=== PATIENT | female | born 1990 | race Caucasian/White ===

== ENCOUNTER 2017-03-21 20:54 | Emergency (ER) | payer OTHER ==
[2017-03-21] MEDS ORDERED: NS 1,000 ML IV ONE (21:13)
[2017-03-21] MEDS ORDERED: DICYCLOMINE 10 MG CAP PO ONE (21:18)
[2017-03-21] MEDS ORDERED: ONDANSETRON 4 MG/2 ML VIAL IVP ONE (21:18)
--- NOTE | 2017-03-21 21:26 | EDPHY ---
H & P Stated Complaint: pt c/o diarreha x3 days, abd cramping HPI/ROS: CHIEF COMPLAINT: Diarrhea, cramping HISTORY OF PRESENT ILLNESS: Patient complains of 3 days history of diarrhea and cramping. It was sudden onset. Constant duration and steadily worsening. Multiple bouts of diarrhea per day. Particularly worse after ingestion by mouth regardless of liquid or solid. Occasional nausea but no vomiting. No trauma or injury. No bright red stool. No fever or chills. No recent travel. She did have a recent viral illness last week and does have a friend who has viral URI symptoms. No recent antibiotics. She has been taking loperamide [id number] today without improvement. No other associated complaints or modifying factors. Last menstrual period was 3 weeks ago REVIEW OF SYSTEMS: Ten systems reviewed and are negative unless otherwise noted in the HPI PAST MEDICAL HISTORY: Denies any medical history PAST SURGICAL HISTORY: Denies any surgical history SOCIAL HISTORY: Patient is originally from [place]. She is visiting here until March 27. FAMILY HISTORY: Noncontributory EXAMINATION General Appearance: Alert, no distress Head: normocephalic, atraumatic Eyes: Pupils equal and round, no conjunctival pallor or injection ENT, Mouth: Mucous membranes moist Neck: Normal inspection, supple, non-tender Respiratory: Lungs are clear to auscultation. No wheezing rhonchi or crackles Cardiovascular: Regular rate and rhythm. No murmur. Pulses intact distally Gastrointestinal: Abdomen is soft and nontender. No distention. Bowel sounds are equal in all 4 quadrants. No distention. No guarding. No rigidity. Benign abdominal examination Back: non-tender, no bony abnormalities Neurological: A&O, nonfocal, normal gait Skin: Warm and dry, no rash Extremities: Nontender, no pedal edema Psychiatric: Mood and affect normal DIFFERENTIAL DIAGNOSES: Including but not limited to viral enteritis, enteritis, diarrhea, dysentery, gastroenteritis, dehydration, MDM: 9:20 p.m. Diarrhea abdominal cramping x3 days. Abdominal exam is benign. Laboratory studies, IV fluid and stool pathogen panel have been ordered. She is in no acute distress. Vital signs stable. 10:30 p.m. I have re-evaluated the patient. She is beginning to feel much better. She has received IV fluid, IV Zofran and Bentyl. Her cramping is improved. Abdominal exam remains benign. Vital signs are stable. Laboratory studies pending. 10:50 p.m. Laboratory studies are within normal limits. No leukocytosis. I have re- evaluated the patient she continues to improve. No nausea. Benign abdominal examination. The GI pathogen panel will not be evaluated until tomorrow morning as there is reportedly no microscopy available this evening. Given her lack of fever, normal white count and improving symptoms I will discharge her home with symptomatic medications. I will follow up on the lab tomorrow morning and contact her with the results. I do not feel she warrants empiric antibiotic coverage at this time as she does not have any suggestion of bacterial involvement. She is comfortable with this plan and discharged home stable condition. She knows that I will contact her tomorrow morning regarding the test results. 11:10 a.m. on March 22, 2017 Patient's micro study, GI pathogen panel, does return with a positive result for Cryptosporidium. Due to the parasitic nature of this I will prescribe Nitazoxanide 500 mg twice daily for 3 days. I have attempted to call the patient twice and I will continue to do so until reach her. 11:30 a.m. I was able to reach the patient by her total. I discussed the positive test result. I discussed the need for prescription. I have printed this and left at the from does for her. She says that she will come picker and sorter load and unload the prescription shortly. Source: Patient Exam Limitations: No limitations - Personal History LMP (Females 10-55): 22-28 Days Ago Tetanus Vaccine Date: 04/25 - Medical/Surgical History Hx Asthma: No Hx Chronic Respiratory Disease: No Hx Diabetes: No Hx Cardiac Disease: No Hx Renal Disease: No Hx Cirrhosis: No Hx Alcoholism: No Hx HIV/AIDS: No Hx Splenectomy or Spleen Trauma: No Other PMH: denies - Social History Smoking Status: Former smoker Constitutional: Initial Vital Signs Temperature (C) 99.1 F 03/21/17 20:58 Heart Rate 84 03/21/17 20:58 Respiratory Rate 16 03/21/17 20:58 Blood Pressure 115/95 H 03/21/17 20:58 O2 Sat (%) 97 03/21/17 20:58 O2 Delivery Mode Room Air Allergies/Adverse Reactions: No Known Allergies Allergy (Unverified 03/21/17 20:56) Home Medications: Medication Instructions Recorded Dicyclomine [Bentyl 20 MG (*)] 20 mg PO QID PRN #13 tab 03/21/17 Loperamide HCl 03/21/17 Ondansetron Odt [Zofran Odt 4 mg 4 mg PO Q6 PRN #12 tab 03/21/17 (*)] Nitazoxanide [Alinia] 500 mg PO Q12 #6 tablet 03/22/17 Medical Decision Making - Data Points Laboratory Results: Laboratory Results 03/21/17 21:31 03/21/17 21:31 Microbiology Results: MICROBIOLOGY 03/21/17 21:30 Stool Gastrointestinal Tract Panel (PCR) - Final Cryptosporidium Species Medications Given: Discontinued Medications Dicyclomine HCl (Bentyl) 20 mg PO EDNOW ONE Stop: 03/21/17 21:19 Last Admin: 03/21/17 21:58 Dose: 20 mg Sodium Chloride (Ns) 1,000 mls @ 0 mls/hr IV EDNOW ONE; Wide Open PRN Reason: Protocol Stop: 03/21/17 21:14 Last Admin: 03/21/17 21:59 Dose: 1,000 mls Ondansetron HCl (Zofran) 4 mg IVP EDNOW ONE Stop: 03/21/17 21:19 Last Admin: 03/21/17 21:58 Dose: 4 mg Ondansetron HCl (Zofran Odt 4 Mg Prepack#2) 1 btl TAKEHOME EDNOW ONE Stop: 03/21/17 22:54 Last Admin: 03/21/17 23:02 Dose: 1 btl Departure - Departure Disposition: Home, Routine, Self-Care Clinical Impression: Cryptosporidiosis Diarrhea Qualifiers: Diarrhea type: infectious Qualified Code(s): A09 - Infectious gastroenteritis and colitis, unspecified Condition: Good Instructions: Loperamide (By mouth), Ondansetron (By mouth), Dehydration (ED), Acute Diarrhea (ED) Additional Instructions: 1. Increase fluid intake as discussed 2. Zofran p.o. as discussed as needed 3. Return to ER for any worsening pain, bloody stools, fever, emesis or cramping Referrals: NONE *PRIMARY CARE P,. [Primary Care Provider] - As per Instructions Irene Shaw MD [[facility] [place]] - As per Instructions Prescriptions: Dicyclomine [Bentyl 20 MG (*)] 20 mg PO QID PRN #13 tab PRN Reason: spasm Nitazoxanide [Alinia] 500 mg PO Q12 #6 tablet Ondansetron Odt [Zofran Odt 4 mg (*)] 4 mg PO Q6 PRN #12 tab PRN Reason: Nausea/Vomiting, Use 1st
[2017-03-21 21:46] LABS: % IMMATURE GRANULYOCYTES 0.3 % (0.0-1.1); ABSOLUTE IMMATURE GRANULOCYTES 0.02 10^3/uL (0.00-0.10); ADD DIFF? NO; ADD MORPH? NO; ADD SCAN? YES; FRAGMENT RBC FLAG 0 (0-99); HEMATOCRIT 40.4 % (38.0-47.0); HEMOGLOBIN 13.2 g/dL (12.6-16.3); LEFT SHIFT FLG 0 (0-99); LIPEMIA HEMOLYSIS FLAG 80 (0-99); MEAN CELL HEMOGLOBIN 30.1 pg (27.9-34.1); MEAN CELL HEMOGLOBIN CONCENTR. 32.7 g/dL (32.4-36.7); MEAN CELL VOLUME 92.2 fL (81.5-99.8); MEAN PLATELET VOLUME 9.7 fL (8.7-11.7); PLATELET CLUMPS FLAG 30 (0-99); PLATELET COUNT 354 10^3/uL (150-400); RED BLOOD CELL COUNT 4.38 10^6/uL (4.18-5.33)
[2017-03-21 21:50] LABS: ATYPICAL LYMPHOCYTE FLAG 150 (0-99)
[2017-03-21 21:55] LABS: ALANINE AMINOTRANSFERASE 28 IU/L (9-52); ALKALINE PHOSPHATASE 50 IU/L (38-126); ANION GAP 12 mEq/L (8-16); ASPARTATE AMINOTRANSFERASE 23 IU/L (14-46); BILIRUBIN,TOTAL 0.5 mg/dL (0.1-1.4); BILIRUBIN-CONJUGATED 0.3 mg/dL (0.0-0.5); BILIRUBIN-UNCONJUGATED 0.2 mg/dL (0.0-1.1); CARBON DIOXIDE 20 mEq/l (22-31); CHLORIDE 106 mEq/L (97-110); CREATININE 0.7 mg/dL (0.6-1.0); GLOMERULAR FILTRATION RATE > 60; GLUCOSE 109 mg/dL (70-100); POTASSIUM 3.8 mEq/L (3.5-5.2); SODIUM 138 mEq/L (134-144); TOTAL PROTEIN 7.7 g/dL (6.3-8.2)
[2017-03-21 22:18] LABS: SCAN NEGATIVE
[2017-03-21] MEDS ORDERED: ONDANSETRON 4MG PREPACK#2 BTL TAKEHOME ONE (22:53)
[2017-03-21 23:10] VITALS: BP 123/69; PULSE 64; RESP 18; TEMP 98.8; O2SAT 96
== END 2017-03-21 23:10 | disposition home or self-care (01) ==
DX: A09 Infectious gastroenteritis and colitis, unspecified (principal); A07.2 Cryptosporidiosis; E86.9 Volume depletion, unspecified; Z87.891 Personal history of nicotine dependence
CPT/HCPCS: 96374; J2405

== ENCOUNTER 2017-03-22 03:05 | Emergency (ER) | payer OTHER ==
[2017-03-22 03:16] VITALS: RESP 16; TEMP 98.4; O2SAT 97
--- NOTE | 2017-03-22 03:53 | EDPHY ---
H & P Stated Complaint: pt seen earlier for diarreha, now has increased blood in stool HPI/ROS: HPI CHIEF COMPLAINT: Diarrhea, blood in his stool, seen earlier HISTORY OF PRESENT ILLNESS: This patient very pleasant 26-year-old female she presents to the emergency room with bright red blood per rectum minimal quantity. She states that it is light pink. Patient reports to me that she was seen here earlier she had normal blood work and a stool study sent to the lab. A stool study has not been run yet. Will be run today. She denies any fever, vomiting or worsening abdominal pain. She states the fact her cramping is improved. She came back to the emergency room because she saw some pink blood in her loose stool. She was told she saw that the come back to the emergency room. Past Medical History: No significant medical history Past Surgical History: No significant surgical history Social History: Denies daily use drugs alcohol tobacco products. Family History: Noncontributory ROS REVIEW OF SYSTEMS: A comprehensive 10 point review of systems is otherwise negative aside from elements mentioned in the history of present illness. Exam Constitutional appears well nontoxic triage nursing summary reviewed, vital signs reviewed, awake/alert. Eyes normal conjunctivae and sclera, EOMI, PERRLA. HENT normal inspection, atraumatic, moist mucus membranes, no epistaxis, neck supple/ no meningismus, no raccoon eyes. Respiratory clear to auscultation bilaterally, normal breath sounds, no respiratory distress, no wheezing. Cardiovascular rate normal, regular rhythm, no murmur, no edema, distal pulses normal. Gastrointestinal soft, non-tender, no rebound, no guarding, normal bowel sounds, no distension, no pulsatile mass. Genitourinary no CVA tenderness. Musculoskeletal no midline vertebral tenderness, full range of motion, no calf swelling, no tenderness of extremities, no meningismus, good pulses, neurovascularly intact. Skin pink, warm, & dry, no rash, skin atraumatic. Neurologic awake, alert and oriented x 3, AAOx3, moves all 4 extremities equally, motor intact, sensory intact, CN II-XII intact, normal cerebellar, normal vision, normal speech. Psychiatric normal mood/affect. Heme/Lymph/Immune no lymphadenopathy. Differential Diagnosis: Includes but is not limited to in a particular order, GI illness, viral diarrhea, bacterial diarrheal illness, internal hemorrhoidal bleed, proctitis Medical Decision Making: Plan for this patient I did review her previous recent ER visit. Her blood work is reassuring. She has normal vital signs here she is not having significant rectal bleeding. Her abdomen is soft nontender. Plan will be for rectal exam if this is unremarkable I will allow her to go home to follow up with her stool studies. Again return precautions given severe abdominal pain, fever, vomiting severe bleeding she should return. Follow up stool studies in 24 hours. Re-evaluation: 0426AM: Rectal exam performed. Kayla ROTHMAN emulsion coater. No external lesions. Rectal exam unremarkable green brown stool no blood. No palpable hemorrhoids or mass. No gross blood. I will allow her to go home. She understands return emergency room if she has worsening abdominal pain fever vomiting or cramping or bloody stools. Recommend calling about her stool studies in 24 hours. Or today afternoon. Source: Patient - Personal History LMP (Females 10-55): 15-21 Days Ago Current Tetanus Diphtheria and Acellular Pertussis (TDAP): Yes Tetanus Vaccine Date: 04/25 - Medical/Surgical History Hx Asthma: No Hx Chronic Respiratory Disease: No Hx Diabetes: No Hx Cardiac Disease: No Hx Renal Disease: No Hx Cirrhosis: No Hx Alcoholism: No Hx HIV/AIDS: No Hx Splenectomy or Spleen Trauma: No Other PMH: denies - Social History Smoking Status: Former smoker Constitutional: Initial Vital Signs Temperature (C) 36.9 C 03/22/17 03:07 Heart Rate 79 03/22/17 03:07 Respiratory Rate 16 03/22/17 03:07 Blood Pressure 108/60 03/22/17 03:07 O2 Sat (%) 97 03/22/17 03:07 O2 Delivery Mode Room Air Allergies/Adverse Reactions: No Known Allergies Allergy (Unverified 03/21/17 20:56) Home Medications: Medication Instructions Recorded Dicyclomine [Bentyl 20 MG (*)] 20 mg PO QID PRN #13 tab 03/21/17 Loperamide HCl 03/21/17 Ondansetron Odt [Zofran Odt 4 mg 4 mg PO Q6 PRN #12 tab 03/21/17 (*)] Departure - Departure Disposition: Home, Routine, Self-Care Clinical Impression: Diarrhea Qualifiers: Diarrhea type: unspecified type Qualified Code(s): R19.7 - Diarrhea, unspecified Condition: Good Instructions: Acute Diarrhea (ED) Additional Instructions: 1. Return emergency room if develops worsening symptoms includes worsening abdominal pain, fever, vomiting. 2. Please follow up with your stool studies in 24 hours. 3. Return if worse. 4. [place] diet. Referrals: NONE *PRIMARY CARE P,. [Primary Care Provider] - As per Instructions
[2017-03-22] MEDS ORDERED: ACETAMINOPHEN 500 MG TAB PO ONE (04:27)
[2017-03-22 04:39] VITALS: BP 112/78; PULSE 87
[2017-03-24] MEDS ORDERED: IOPAMIDOL (ISOVUE-300) 100 ML BTL ONE (04:56)
== END 2017-03-22 04:39 | disposition home or self-care (01) ==
DX: R19.7 Diarrhea, unspecified (principal); Z87.891 Personal history of nicotine dependence
CPT/HCPCS: Q9967

== ENCOUNTER 2017-03-24 04:11 | Observation (INO) | payer OTHER ==
[2017-03-24] MEDS ORDERED: ONDANSETRON 4 MG/2 ML VIAL IVP ONE (04:45)
[2017-03-24] MEDS ORDERED: NS 1,000 ML IV ONE (04:45)
[2017-03-24] MEDS ORDERED: ONDANSETRON 4 MG/2 ML VIAL ONE (04:46)
--- NOTE | 2017-03-24 05:16 | EDPHY ---
H & P Time Seen by Provider: 03/24/17 05:07 HPI/ROS: HPI CHIEF COMPLAINT: Abdominal pain, abdominal cramps, bright red blood per rectum HISTORY OF PRESENT ILLNESS: this patient is a female she presents emergency room with abdominal pain abdominal cramping and bright red blood per rectum. She was previously seen here in the emergency room 2 for times. She states approximately last week she developed some abdominal pain and cramping. Then developed some bloody stool 3 days ago. She was seen in emergency room had stool studies sent. She tells me since being discharged she has had ongoing abdominal pain getting worse with abdominal cramping and bright red blood per rectum. No fever no vomiting. She states that she did follow up her stool study and she was called into medication [facility], however she continues to have abdominal pain, abdominal bloating and rectal bleeding. Past Medical History: No significant medical history Past Surgical History: No significant surgical history Social History: Denies daily use drugs alcohol tobacco products. Family History: Noncontributory ROS REVIEW OF SYSTEMS: A comprehensive 10 point review of systems is otherwise negative aside from elements mentioned in the history of present illness. Exam Constitutional triage nursing summary reviewed, vital signs reviewed, awake/ alert. Eyes normal conjunctivae and sclera, EOMI, PERRLA. HENT normal inspection, atraumatic, moist mucus membranes, no epistaxis, neck supple/ no meningismus, no raccoon eyes. Respiratory clear to auscultation bilaterally, normal breath sounds, no respiratory distress, no wheezing. Cardiovascular rate normal, regular rhythm, no murmur, no edema, distal pulses normal. Gastrointestinal soft, mild tenderness diffusely, no rebound, no guarding, normal bowel sounds, no distension, no pulsatile mass. Genitourinary no CVA tenderness. Musculoskeletal no midline vertebral tenderness, full range of motion, no calf swelling, no tenderness of extremities, no meningismus, good pulses, neurovascularly intact. Skin pink, warm, & dry, no rash, skin atraumatic. Neurologic awake, alert and oriented x 3, AAOx3, moves all 4 extremities equally, motor intact, sensory intact, CN II-XII intact, normal cerebellar, normal vision, normal speech. Psychiatric normal mood/affect. Heme/Lymph/Immune no lymphadenopathy. Differential diagnosis includes but is not limited to and in no particular order : Bowel obstruction, appendicitis, gallbladder disease, diverticulitis, colitis , enteritis, perforated viscus, gastritis, GERD, esophagitis, urinary tract infection, pyelonephritis, kidney stones Medical Decision Making: Plan for this patient IV establishment, IV fluid bolus , Zofran for nausea morphine for pain control, repeat blood work, abdominal labs , CT abdomen pelvis with IV contrast check lactic acid. Review stool studies from previous visit. Re-evaluation: 0442AM: Patient reports to me that she was diagnosed with Cryptosporidium. 0532AM: CT scan of the abdomen pelvis with IV contrast The results of the study are shows diffuse thickening of the colonic wall consistent with acute colitis. The study was read by Dr. Briscoe. I viewed the images myself on the PACS system. 0500AM: Given this patient's ongoing abdominal pain and bright red blood per rectum she will be admitted to the hospital for colitis. Her CT scan does show diffuse colonic wall thickening. This is her 3rd ER visit . Ongoing abdominal pain abdominal cramping bright red blood per rectum. Positive for Cryptosporidium. Patient need to be admitted to the hospital for symptomatic management bowel rest IV fluids rehydration pain control Cryptosporidium treatment. Source: Patient - Personal History Tetanus Vaccine Date: 04/25 - Medical/Surgical History Hx Asthma: No Hx Chronic Respiratory Disease: No Hx Diabetes: No Hx Cardiac Disease: No Hx Renal Disease: No Hx Cirrhosis: No Hx Alcoholism: No Hx HIV/AIDS: No Hx Splenectomy or Spleen Trauma: No Other PMH: denies - Social History Smoking Status: Former smoker Constitutional: Initial Vital Signs Temperature (C) 36.9 C 03/24/17 04:30 Heart Rate 79 03/24/17 04:30 Respiratory Rate 18 03/24/17 04:30 Blood Pressure 110/56 L 03/24/17 04:30 O2 Sat (%) 98 03/24/17 04:30 O2 Delivery Mode Room Air Allergies/Adverse Reactions: No Known Allergies Allergy (Unverified 03/24/17 06:54) Home Medications: Medication Instructions Recorded Dicyclomine [Bentyl 20 MG (*)] 20 mg PO QID PRN #13 tab 03/21/17 Loperamide HCl [Imodium 2 mg (*)] 2 mg PO PRN PRN 03/21/17 Nitazoxanide [Alinia] 500 mg PO Q12 #6 tablet 03/22/17 Medical Decision Making - Data Points Laboratory Results: Laboratory Results 03/24/17 05:25 03/24/17 05:25 Medications Given: Dicyclomine HCl (Bentyl) 20 mg PO QID PRN PRN Reason: spasm Stop: 09/20/17 09:07 Last Admin: 03/24/17 09:57 Dose: 20 mg Sodium Chloride (Ns) 1,000 mls @ 125 mls/hr IV CONT DARRON Stop: 09/20/17 06:59 Last Admin: 03/24/17 08:56 Dose: 1,000 mls Discontinued Medications Sodium Chloride (Ns) 1,000 mls @ 0 mls/hr IV ONCE ONE PRN Reason: Wide Open Stop: 03/24/17 04:46 Last Admin: 03/24/17 04:45 Dose: 1,000 mls Morphine Sulfate (Morphine) 4 mg IVP EDNOW ONE Stop: 03/24/17 04:46 Last Admin: 03/24/17 04:45 Dose: 2 mg Nitazoxanide (Alinia) 500 mg PO Q12 DARRON PRN Reason: Protocol Stop: 03/24/17 21:01 Last Admin: 03/24/17 10:42 Dose: 500 mg Ondansetron HCl (Zofran) 4 mg IVP EDNOW ONE Stop: 03/24/17 04:46 Last Admin: 03/24/17 04:45 Dose: 4 mg Departure - Departure Disposition: [facility] Acute Clinical Impression: Bloody stool, Colitis Abdominal pain Qualifiers: Abdominal location: generalized Qualified Code(s): R10.84 - Generalized abdominal pain Condition: Fair
[2017-03-24 05:29] LABS: ALANINE AMINOTRANSFERASE 35 IU/L (9-52); ALBUMIN 3.6 g/dL (3.5-5.0); ALKALINE PHOSPHATASE 66 IU/L (38-126); ANION GAP 9 mEq/L (8-16); ASPARTATE AMINOTRANSFERASE 25 IU/L (14-46); BILIRUBIN,TOTAL 0.5 mg/dL (0.1-1.4); CALCIUM 9.1 mg/dL (8.5-10.4); CARBON DIOXIDE 21 mEq/l (22-31); CHLORIDE 104 mEq/L (97-110); CREATININE 0.8 mg/dL (0.6-1.0); GLOMERULAR FILTRATION RATE > 60; GLUCOSE 95 mg/dL (70-100); POTASSIUM 3.8 mEq/L (3.5-5.2); SODIUM 134 mEq/L (134-144); TOTAL PROTEIN 7.4 g/dL (6.3-8.2)
[2017-03-24 06:38] LABS: % IMMATURE GRANULYOCYTES 0.3 % (0.0-1.1); ABSOLUTE IMMATURE GRANULOCYTES 0.03 10^3/uL (0.00-0.10); ADD DIFF? NO; ADD MORPH? NO; ADD SCAN? NO; ATYPICAL LYMPHOCYTE FLAG 70 (0-99); FRAGMENT RBC FLAG 0 (0-99); HEMATOCRIT 41.6 % (38.0-47.0); HEMOGLOBIN 13.6 g/dL (12.6-16.3); LEFT SHIFT FLG 20 (0-99); LIPEMIA HEMOLYSIS FLAG 80 (0-99); MEAN CELL HEMOGLOBIN 29.9 pg (27.9-34.1); MEAN CELL HEMOGLOBIN CONCENTR. 32.7 g/dL (32.4-36.7); MEAN CELL VOLUME 91.4 fL (81.5-99.8); MEAN PLATELET VOLUME 9.5 fL (8.7-11.7); PLATELET CLUMPS FLAG 0 (0-99); PLATELET COUNT 394 10^3/uL (150-400); RED BLOOD CELL COUNT 4.55 10^6/uL (4.18-5.33)
[2017-03-24] MEDS ORDERED: ACETAMINOPHEN 325 MG TAB PO PRN (06:52)
[2017-03-24] MEDS ORDERED: ONDANSETRON DISINTEGRATING 4 MG TAB PO PRN (06:52)
[2017-03-24] MEDS ORDERED: ONDANSETRON 4 MG/2 ML VIAL IVP PRN (06:52)
[2017-03-24] MEDS ORDERED: HYDROmorphONE/DILAUDID 1 MG/ML SYR IVP PRN ×2 (07:00→07:06)
[2017-03-24] MEDS ORDERED: LOPERAMIDE HCL 2 MG CAP PO PRN (07:00)
[2017-03-24] MEDS ORDERED: NS 1,000 ML IV SCH (07:00)
[2017-03-24 07:07] LABS: COLOR YELLOW; LEUKOCYTE ESTERASE,URINE 2+ (NEGATIVE); NITRITE,URINE NEGATIVE (NEGATIVE)
--- NOTE | 2017-03-24 07:29 | GHP ---
[f rep st] HISTORY AND PHYSICAL DATE OF ADMISSION: 03/24/2017 CHIEF COMPLAINT: Abdominal pain, hematochezia. HISTORY OF PRESENT ILLNESS: A pleasant 26-year-old Spanish female here visiting presents to the emergency room with progressive abdominal cramping and bright red blood per rectum. She was seen here 2 times this week in the emergency room for similar symptoms. Symptoms began a week ago with crampy abdominal pain and diffuse diarrhea. She was having up to 20 bowel movements a day. She began having bloody stools 3 days ago. She has had some nausea. Two days ago, she had some dizziness. She was able to tolerate some foods like rice and broth for a short time; however, she returns today because of increased blood per rectum. Stool study since last visit was positive for Cryptosporidium, and she was started on Alinia, Bentyl, and loperamide with minimal improvement of symptoms. She did hike last at [place]. She denies drinking out of any streams or fresh water. She did drink from a public water fountain at the end of the trail. REVIEW OF SYSTEMS: I completed a 10-point review of systems. Negative except noted in HPI. PAST MEDICAL HISTORY: None. PAST SURGICAL HISTORY: None. FAMILY HISTORY: Dad with diabetes. ALLERGIES: None. MEDICATIONS: Bentyl, Alinia, and loperamide. SOCIAL HISTORY: She is from [facility]. Previously an supervisor laundry here. She is back visiting that family in [place] and came here to [place] 2 days ago to visit. Denies alcohol, tobacco, or illicits. PHYSICAL EXAM: VITAL SIGNS: Temperature 36.9, blood pressure is 110/70, heart rate in the 60s, respiration 14, 95% on room air. GENERAL: Well appearing, lying in bed, no acute distress. HEENT: Dry mucous membranes. CV: Regular rate and rhythm. No murmurs, gallops, rubs. LUNGS: Clear to auscultation bilaterally. ABDOMEN: Left lower quadrant and epigastric tenderness. No rebound or guarding. Positive bowel sounds. : No suprapubic tenderness. MUSCULOSKELETAL: 5/5 upper and lower extremity strength. No joint effusions or tenderness. NEURO: 2-12 intact. PSYCH: Alert and oriented x3. LABS: WBC 11, hemoglobin 13, hematocrit 41, platelets 394. Sodium 134, potassium 3.8, chloride 104, carbon dioxide 21, creatinine 0.8, glucose 95, calcium 9.1, total bilirubin 0.5, AST 25, ALT 35, alk phos 66, total protein 7.4 , albumin 3.4. CT abdomen and pelvis: Diffuse thickening of the colon, possible colitis. Small bowel fluid filled and mildly dilated. No peritoneal fluid. ASSESSMENT AND PLAN: 1. Cryptosporidium infection: returns with persistent hematochezia and abdominal pain. Continue her treatment as prescribed. P.r.n. loperamide and discuss case with GI. Supportive care with IV fluids and IV opioids. 2. Acute abdominal pain: Secondary to acute Cryptosporidium infection. P.r.n. opioids. Advance diet as tolerated. 3. Leukocytosis: Mild, secondary to stress inflammation with acute colitis. She is afebrile. No evidence of abscess on CT. Denies other infectious symptoms. 4. Social issues: she wants to go home to [place] to be with her family and possibly seek medical care there. We will have Case Management evaluate patient for assistance. 5. Deep venous thrombosis prophylaxis: Low risk. 6. Diet: Regular. 7. Disposition: The patient warrants observation admission given acute abdominal pain warranting supportive care with IV opioids and IV fluids. /[id number]/MODL MTDD
[2017-03-24] MEDS ORDERED: DICYCLOMINE 20 MG TAB PO PRN (09:08)
[2017-03-24] MEDS: NITAZOXANIDE 500 MG TAB PO SCH ×2 (10:42→22:59)
--- NOTE | 2017-03-24 14:45 | HOSPPROG ---
Hospitalist Progress Note Assessment/Plan: 26 yo F with no significant PMH presenting with abd pain, diarrhea and BRBPR found to have cryptosporidium infection # cryptosporidium infection: has had sxs for several days including ongoing diarrhea and BRBPR--seen in ER and treated with bentyl, immodium and alinta and has had some improvement in her sxs. She is eating without issues currently and sxs have dramatically improved, though she did have increased issues overnight and is concerned that tonight could get bad again. Will continue supportive care. # brpbr: in setting of above and without decrease in h/h, monitoring # leukocytosis: mild and in setting of above # observation status Subjective: has had decrease in BMs, tolerating food Objective: Vital Signs Temp Pulse Resp BP Pulse Ox 36.6 C 64 16 105/51 L 97 03/24/17 08:51 03/24/17 08:51 03/24/17 08:51 03/24/17 08:51 03/24/17 08:51 03/23/17 03/24/17 03/25/17 05:59 05:59 05:59 Intake Total 1000 Balance 1000 ICD10 Worksheet Patient Problems: Problems Problem Status Onset Diarrhea Acute Abdominal pain Acute Bloody stool Acute Colitis Acute
[2017-03-25 04:46] LABS: HEMATOCRIT 33.8 % (38.0-47.0); HEMOGLOBIN 10.9 g/dL (12.6-16.3); MEAN CELL HEMOGLOBIN 29.7 pg (27.9-34.1); MEAN CELL HEMOGLOBIN CONCENTR. 32.2 g/dL (32.4-36.7); MEAN CELL VOLUME 92.1 fL (81.5-99.8); RED BLOOD CELL COUNT 3.67 10^6/uL (4.18-5.33); RED CELL DISTRIBUTION WIDTH 14.1 % (11.5-15.2)
--- NOTE | 2017-03-25 08:44 | PDDCSUM ---
Discharge Summary Discharge Summary: Dates of service 03/24-03/25/17 Discharge dx: # cryptosporidium infection # diarrhea # BRBPR # anemia # leukocytosis Consultations: none Procedures: none Hospital course by problem: # cryptosporidium infection: has had sxs for several days including ongoing diarrhea and BRBPR--since admission has almost completely resolved, tolerating bland foods, diarrhea largely resolved # brpbr: in setting of above, had decrease in h/h overnight that was liikely at least in part dilutional but bleeding itself resolved # anemia: as above in setting of gastroenteritis with associated GI bleeding, mild, bleeding resolved # leukocytosis: mild and in setting of above, resolved DC home f/u with PCP Meds: see EHR
[2017-03-25 09:55] VITALS: BP 114/65; PULSE 72; RESP 17; TEMP 98.3; O2SAT 96
--- NOTE | 2017-03-28 17:06 | ASDISCHSUM ---
Discharge Information Plan Status:Home with No Needs Medically Cleared to Leave: Discharge Date:03/25/2017 10:11 AM CM D/C Disposition:Home, Routine, Self-Care ADT D/C Disposition:Home, Routine, Self-Care Projected Discharge Date:03/25/2017 10:11 AM Transportation at D/C:Family Discharge Delay Reason: Follow-Up Date:03/25/2017 10:11 AM Discharge Slot: Final Diagnosis: Placement Information Patient Contact Information Contact Name:ZACHJacinto Relationship: Address: Home Phone: Work Phone: City: Alternate Phone: State/Zip Code: Email: Financial Information Financial Class:Commercial Primary Plan Desc:[facility] Primary Plan Number:[id number] Secondary Plan Desc: Secondary Plan Number: Assessment Information Intervention Information
== END 2017-03-25 10:11 | disposition home or self-care (01) ==
LOC: INTOOBSV 05:54 → F2W 08:10
PROVIDERS: ADMIT Internal Medicine; ATTEND Internal Medicine
DX: A07.2 Cryptosporidiosis (principal); D64.9 Anemia, unspecified; D72.829 Elevated white blood cell count, unspecified
CPT/HCPCS: 74177; 96361; 96374; G0378; J2405